=== PATIENT | male | born 2000 | race Hispanic/Latino ===

== ENCOUNTER 2024-09-19 14:20 | Emergency (ER) | payer OTHER, BC, SELFPAY ==
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
--- NOTE | ~2024-09-19 | CT_ITS ---
EXAMINATION: CT abd pelvis lumbar w con DATE: 09/19/2024 17:10 INDICATION: TECHNIQUE: Computed tomography (CT) of the abdomen, pelvis and lumbar spine was performed with 100 mL Omnipaque-350 intravenous contrast. Automated exposure control and iterative reconstruction techniqu e were employed. The dose-length product was 324.75 mGy-cm. COMPARISON: None FINDINGS: Lung bases are clear. Heart size normal. No pericardial or pleural effusion. Liver, gallbladder, sple en, pancreas, bilateral adrenal glands and kidneys are normal. Bladder is normal. Bowels including th e appendix are normal. No free intraperitoneal gas or fluid. No pathologically enlarged abdominal or pelvic lymphadenopathy. Couple bone islands at the bilateral femoral heads. No acute osseous abnormal ity. There are hypoplastic riblets at what for purposes of this report will be designated L1 with 4 more c audal nonrib-bearing lumbar segments. Minimal chronic appearing likely physiologic anterior wedging a t T12. Remaining vertebral body heights are normal. Disc heights are normal. Mild facet osteoarthriti s a few levels in the lower lumbar spine. No central canal or neural foraminal stenosis. IMPRESSION: 1. No acute intra-abdominal/pelvic process or acute osseous abnormality. Reviewed, dictated and finalized at location A.
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
--- OUTSIDE RECORDS SUMMARY | 2024-09-19 14:31 | XMS_ITS | Clinical Summary ---
Author Organization [employer] [facility] on Address [address] [place] [id number] Phone Care Team Providers Care Director Of Student Aid Name Role Phone Licha Trinh MD Primary Care Provider Unavailab le Allergies No known active allergies Medications No known medications Family History Medical History Relation Name Comments Healthy Father Healthy Mother Relation Name Status Comments Father Alive Mother Alive Social History Tobacco Use Types Packs/Day Years Used Date Smoking Tobacco: Former Smokeless Tobacco: Never Alcohol Use Standard Drinks/Week Comments No 0 (1 standard drink = 0.6 oz pur e alcohol) Sex and Gender Information Value Date Recorded Sex Assigned at Not on file Legal Sex Male 9:53 AM [employer] Gender Identity Not on file Sexual Orientation Not on file Last Filed Vital Signs Vital Sign Reading Time Taken Comments Blood Pressure 129/79 03/24/2017 10:32 AM [employer] Pulse 71 03/24/2017 10:32 AM [employer] Temperature 36.8 C (98.3 F) 03/24/2017 10:32 AM [employer] HEL[employer] Respiratory Rate 16 03/24/2017 10:32 AM [employer] HEL[employer] Oxygen Saturation 100% 03/24/2017 10:32 AM [employer] M[employer] HEL[employer] room air Inhaled Oxygen Concentration - - Weight 68 kg (150 lb) 03/24/2017 10:32 [address] MACH[employer] [address] ated Height 175.3 cm (5' 9) 03/24/2017 10:32 AM [employer] HEL[employer] stated Body Mass Index 22.15 03/24/2017 10:32 AM [employer] HEL[employer] Plan of Treatment Health Maintenance Due Date Last Done Comments HPV VACCINES (1 - Male 3-dose series) 2015 DTAP/TDAP/TD VACCINES (1 - Tdap) 2019 HEPATITIS B VACCINES (1 of 3 - 19+ 3-dose series) 03/2019 INFLUENZA VACCINE (#1) 2024 Insurance [facility] [id number] [place] [id number] Care Teams Director Of Student Aid Relationship Specialty Start Date End Date Licha Trinh MD PCP - General Pediatrics 03/24/17
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
[2024-09-19 14:50] VITALS: BP 109/76; PULSE 91; RESP 16; TEMP 36.4; O2SAT 97
[2024-09-19] MEDS: ACETAMINOPHEN 500 MG TABLET 1000 MG PO (14:53)
[2024-09-19 15:14] LABS: Hematocrit 43.7 % (42.0-52.0); Hemoglobin 15.5 g/dL (14.0-18.0); Immature Granulocyte Percent A 0.3 % (0-0.5); Lymphocytes Absolute Auto 1.87 K/mm3 (0.9-3.2); Mean Corpuscular HGB Conc 35.5 g/dl (32-36); Mean Corpuscular Hemoglobin 31.4 pg (26-34); Mean Corpuscular Volume 88.5 fl (80-100); Nucleated Red Blood Cells Absolute Auto 0.000 K/mm3 (0.0-0.012); Nucleated Red Blood Cells Perc 0.0 % (0.0-0.2); Platelet Count Result 292 k/mm3 (150-375); Red Blood Count 4.94 M/mm3 (4.6-6.20); White Blood Count 6.2 K/mm3 (4.5-10.0)
[2024-09-19 15:26] LABS: Alanine Aminotransferase 55 U/L (6-50); Albumin Level 4.8 g/dL (3.5-5.1); Alkaline Phosphatase 58 U/L (38-126); Anion Gap 9 mmol/L (4-12); Aspartate Amino Transferase 38 U/L (17-59); Bilirubin,Total 0.8 mg/dL (0.2-1.3); Blood Urea Nitrogen 11 mg/dL (9-20); Calcium 9.6 mg/dL (8.4-10.2); Carbon Dioxide 28 mmol/L (22-30); Chloride 102 mmol/L (98-107); Estimated CRCL calculation 120 ml/min; Estimated Glomerular Filt Rate > 60; Glucose 93 mg/dL (65-110); INR 1.0; Lipase 54 U/L (23-300); Potassium 4.0 mmol/L (3.4-5.0); Prothrombin Time 13.4 Seconds (11.1-14.7); Sodium 139 mmol/L (137-145); Total Protein 7.5 g/dL (6.3-8.2)
[2024-09-19 15:27] LABS: Partial Thromboplastin Time 31.0 Seconds (22.3-36.8)
== END 2024-09-19 18:00 | disposition home or self-care (01) ==
PROVIDERS: Physician Assistant; Emergency Provider Emergency Medicine
DX: M25.522 Pain in left elbow (principal); V43.52XA Car driver injured in collision with other type car in traffic accident, initial encounter
CPT/HCPCS: 36415; 70450; 72125; 72132; 73080; 74177; 80053; 83690; 85025; 85610; 85730; 99284; A9270; Q9967